=== PATIENT | male | born 1965 | race American Indian/Alaskan Native ===

== ENCOUNTER 2020-10-28 06:19 | Day surgery (SDC) | payer OTHER ==
--- NOTE | 2020-10-27 14:39 | Anesthesia Consultation ---
Anesthesia Consult and Med Hx Date of service: 10/27/20 - Airway Anesthetic Teeth Evaluation: Good ROM Head & Neck: Adequate Mental/Hyoid Distance: Adequate Mallampati Class: Class III Intubation Access Assessment: Possibly Difficult - Pulmonary Exam CTA: Yes - Cardiac Exam Cardiac Exam: RRR - Pre-Operative Health Status ASA Pre-Surgery Classification: ASA3 Proposed Anesthetic Plan: MAC - Pulmonary Hx Smoking: No Hx Respiratory Symptoms: No Hx Sleep Apnea: Yes (+ CPAP) - Cardiovascular System Hx Hypertension: Yes Hx Heart Attack/AMI: No Hx Percutaneous Transluminal Coronary Angioplasty (PTCA): No Hx Cardia Arrhythmia: Yes (hx WPW, afib s/p ablation; occasional palpitations. EKG 10/27/20 NSR ) Hx Pacemaker: No Hx Internal Defibrillator: No - Central Nervous System CVA: No Hx Back Pain: Yes Hx Psychiatric Problems: Yes (PTSD, anxiety, depression) - Endocrine Hx Renal Disease: No Hx Liver Disease: No Hx Non-Insulin Dependent Diabetes: Yes ("borderline" DM) Hx Thyroid Disease: No - Other Systems Hx Alcohol Use: Yes (remote hx) Hx Substance Use: Yes (remote hx) Hx Obesity: Yes (BMI 35) - Additional Comments Anesthesia Medical History Comments: No hx anesthetic complications. Has non- healed left rib fractures from a fall 3yrs ago. Last dose ASA >1 wk ago.
[~2020-10-28 06:19] MED LIST: ACETAMINOPHEN 500 MG TAB PO SCH; GABAPENTIN 300 MG CAP PO NR; LACTATED RINGERS 1,000 ML IV SCH; MIDAZOLAM 2 MG/2 ML INJ IV NR
[2020-10-28] MEDS ORDERED: BACTERIOSTATIC SODIUM CHLORIDE 0.9% 30 ML VIAL INFILTRATI ONE (06:47)
[2020-10-28] MEDS ORDERED: ceFAZolin/STERILE WATER 2 GM/20 ML SYRINGE IV NR (07:00)
[2020-10-28] MEDS ORDERED: propofoL 200 MG/20 ML VIAL IV ONE ×2 (07:28→08:23)
[2020-10-28] MEDS ORDERED: MIDAZOLAM 2 MG/2 ML INJ ONE (07:28)
[2020-10-28] MEDS ORDERED: HYDROmorphone 1 MG/1 ML INJ ONE (07:28)
[2020-10-28] MEDS ORDERED: LIDOCAINE (1%) 10 MG/1 ML VIAL 20 ML MDV ONE (07:28)
[2020-10-28] MEDS ORDERED: BUPIVACAINE/PF (0.25%) 2.5 MG/ML 30 ML VIAL INFILTRATI ONE ×2 (07:28→08:05)
[2020-10-28] MEDS ORDERED: LIDOCAINE MPF (2%) 20 MG/1 ML VIAL 5 ML ONE (07:36)
[2020-10-28] MEDS ORDERED: LIDOCAINE (1%) 10 MG/1 ML VIAL 20 ML MDV INFILTRATI ONE (08:05)
[2020-10-28] MEDS ORDERED: SODIUM CHLORIDE 0.9% IRR 1,500 ML BOTTLE IR ONE (08:05)
[2020-10-28] MEDS ORDERED: fentaNYL 100 MCG/2 ML INJ IV PRN (08:37)
[2020-10-28] MEDS ORDERED: ONDANSETRON 4 MG/2 ML INJ IV PRN (08:37)
--- NOTE | 2020-10-28 08:37 | Anesthesia Day of Surgery ---
Anesthesia Day of Surgery - Day of Surgery Patient Examined: Yes Patient H&P Reviewed: Yes Patient is NPO: Yes Beta Blockers: Yes
--- NOTE | 2020-10-28 09:17 | Short Stay Summary ---
Short Stay Documentation Date of service: 10/28/20 - History Principal diagnosis: soft tissue mass upper back/posterior neck - Allergies and Medications Current Medications: Allergies hydrocodone [From Vicodin] Allergy (Verified 10/20/20 15:53) Itching lisinopril Adverse Reaction (Verified 10/20/20 15:54) Swelling LIPS SWELLED oxycodone [From Percocet] Adverse Reaction (Verified 10/20/20 15:53) Itching Home Medications Medication Instructions Recorded Confirmed Last Taken Type AtorvaSTATin [Lipitor] 10 mg PO QHS 08/01/18 10/28/20 3 Days Ago History ~10/25/20 Terazosin HCl 2 mg PO DAILY 08/01/18 10/28/20 10/27/20 History traMADoL [Ultram] 50 mg PO Q4HR PRN 08/01/18 10/28/20 3 Days Ago History ~10/25/20 Aspirin 81 mg PO DAILY 10/20/20 10/22/20 1 Week Ago History ~10/21/20 HCTZ 25 mg PO DAILY 10/20/20 10/22/20 3 Days Ago History ~10/25/20 Naprosyn 500 mg PO BID 10/20/20 10/22/20 1 Week Ago History ~10/21/20 amLODIPine 10 mg PO DAILY 10/20/20 10/28/20 3 Days Ago History ~10/25/20 carvediloL 25 mg PO DAILY 10/20/20 10/28/20 10/28/20 05:30 History metFORMIN 500 mg PO DAILY 10/20/20 10/22/20 3 Days Ago History ~10/25/20 Cyclobenzaprine [Flexeril 10 MG 10 mg PO PRN PRN 10/22/20 10/22/20 3 Days Ago History TAB] ~10/25/20 Gabapentin 300 mg PO TID PRN 10/22/20 10/22/20 3 Days Ago History ~10/25/20 Hydroxyzine HCl [hydrOXYzine] 25 mg PO PRN 10/22/20 10/22/20 3 Days Ago History ~10/25/20 Omeprazole 20 mg PO DAILY 10/22/20 10/22/20 3 Days Ago History ~10/25/20 allopurinoL [Zyloprim] 300 mg PO QDAY 10/22/20 10/22/20 3 Days Ago History ~10/25/20 methocarbamoL [Methocarbamol] 500 mg PO DAILY 10/22/20 10/22/20 3 Days Ago History ~10/25/20 traMADoL [Ultram 50 MG tab] 50 mg PO TID PRN 10/22/20 10/22/20 3 Days Ago History ~10/25/20 traZODone 50 mg PO HS 10/22/20 10/22/20 3 Days Ago History ~10/25/20 Active Medications Acetaminophen (Acetaminophen 500 Mg Tab) 1,000 mg PO PREOP CHILO Stop: 10/28/20 23:59 Last Admin: 10/28/20 06:55 Dose: 1,000 mg Documented by: Cefazolin Sodium (Cefazolin/Sterile Water 2 Gm/20 Ml Syringe) 2 gm IV PREOP NR Stop: 10/28/20 20:00 Fentanyl (Fentanyl 100 Mcg/2 Ml Inj) 50 mcg IV Q5MIN PRN PRN Reason: Pain , Severe (7-10) Stop: 10/28/20 23:00 Lactated Ringer's (Lactated Ringers) 1,000 mls @ 100 mls/hr IV DIRECT CHILO Stop: 10/28/20 23:59 Last Admin: 10/28/20 07:00 Dose: 100 mls/hr Documented by: Midazolam HCl (Midazolam 2 Mg/2 Ml Inj) 2 mg IV PREOP NR Stop: 10/28/20 23:59 Last Admin: 10/28/20 06:10 Dose: 2 mg Documented by: Ondansetron HCl (Ondansetron 4 Mg/2 Ml Inj) 4 mg IV ONCE PRN PRN Reason: Nausea And Vomiting Stop: 10/28/20 23:00 - Brief post op/procedure progress note Date of procedure: 10/28/20 Pre-op diagnosis: soft tissue mass upper back/post neck Post-op diagnosis: same Procedure: excision STM upper back/post neck Anesthesia: MAC, local Findings: Fibrotic subcutaneous tissue just deep to the level of the dermis with normal appearing surrounding fatty tissue. No other obvious lesions in the area of concern. Wound and area of concern examined with bedside ultrasound and no other obvious soft tissue mass identified. Surgeon: ELLEN MURILLO Estimated blood loss: minimal Pathology: list (mass of upper back/post neck - excised in multiple fragments) Specimen disposition: to lab Condition: stable - Hospital course Hospital course: Pt observed in PACU and discharged to home in stable condition when criteria met - Disposition Condition at discharge: Good Short Stay Discharge Plan Activity: no restrictions Diet: regular Wound: per your surgeon's advice (leave dressing in place for the next 3-5 days. May shower with dressing in place but avoid direct water to the area. Pat dry, do not scrub. If dressing falls off, do not need to re-cover) Additional Instructions: Use ice pack to the area of surgery for pain and bruising. Follow up with: [facility] [Primary Care Provider] - 7 Days ELLEN MURILLO DO [Staff Physician] - 14 Days Prescriptions: traMADoL [Ultram 50 MG tab] 50 mg PO Q4HR PRN #20 tablet PRN Reason: Pain
[2020-10-28 11:16] VITALS: BP 152/94
--- NOTE | 2020-10-28 12:12 | Post Anesthesia Evaluation ---
- Post Anesthesia Evaluation Patient Participated: Yes Airway Patent: Yes Stable Respiratory Function: Yes Nausea/Vomiting: No Temp > 96.8F: Yes Pain Manageable: Yes Adequeate Hydration: Yes Anesthesia Complications: No
--- NOTE | 2020-10-28 17:43 | Electrocardiograph Report ---
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
--- NOTE | 2020-10-31 07:10 | Operative Report ---
Operative Report Operative Report: Date of procedure: 10/28/20 Pre-op diagnosis: soft tissue mass upper back/post neck Post-op diagnosis: same Procedure: excision STM upper back/post neck Anesthesia: MAC, local Findings: Fibrotic subcutaneous tissue just deep to the level of the dermis with normal appearing surrounding fatty tissue. No other obvious lesions in the area of concern. Wound and area of concern examined with bedside ultrasound and no other obvious soft tissue mass identified. Surgeon: ELLEN MURILLO Estimated blood loss: minimal Pathology: list (mass of upper back/post neck - excised in multiple fragments) Specimen disposition: to lab Condition: stable Hospital course: Pt observed in PACU and discharged to home in stable condition when criteria met HPI and indication: Patient is a 54-year-old male who presented to the surgery clinic with complaints of a mass of his posterior neck upper back area. Patient states it has been growing in size and was becoming uncomfortable. He wanted it to be excised. All risk, benefits, alternatives to surgery were discussed with the patient and questions answered. Consent obtained for excision of soft tissue mass of posterior neck Procedure in detail: Patient was identified in the preoperative area and the site marked. He was taken back to the operating room and placed on the operating room table in supine position. After anesthesia was induced the patient was turned to prone position. The posterior neck and upper back were prepped and draped in the usual sterile fashion and a timeout performed. Local anesthetic was infiltrated into the skin at the intended incision site. An incision was made over the area of the palpable mass and dissection was carried down through the subcutaneous tissue using electrocautery. In the location of the mass was fibrotic subcutaneous and dermal tissue. Surrounding this there was normal subcutaneous tissue. Using a mind ray intraoperative ultrasound, no other mass was identified to account for the palpable lesion. The fibrotic tissue was excised using electrocautery and multiple fragments. This was passed off the table as a specimen. Once again using the minder a bedside ultrasound, the wound was examined and no other lesions identified. The wound was irrigated and hemostasis carefully ensured. Once hemostasis was ensured, the wound was closed in layered fashion. Deep layer was closed with interrupted 3-0 Vicryl stitches. The skin was approximated using 4-0 Monocryl subcuticular running stitch and skin glue. Once the glue was dry a 4 x 4 gauze was applied to the wound and secured with Elastoplast tape for compression. At the end of the case all sponge, instrument, sharp counts were correct x2. Patient was awoken from anesthesia, transferred to the stretcher and taken to PACU in stable condition. The patient's was updated of intraoperative findings and the patient's condition.
== END 2020-10-28 10:20 | disposition home or self-care (01) ==
LOC: OR 06:19
PROVIDERS: ATTEND Surgery
DX: D17.0 Benign lipomatous neoplasm of skin and subcutaneous tissue of head, face and neck (principal); E11.9 Type 2 diabetes mellitus without complications; E66.9 Obesity, unspecified; G47.30 Sleep apnea, unspecified; F41.9 Anxiety disorder, unspecified; F32.9 Major depressive disorder, single episode, unspecified; M19.90 Unspecified osteoarthritis, unspecified site; K21.9 Gastro-esophageal reflux disease without esophagitis; Z88.8 Allergy status to other drugs, medicaments and biological substances; Z79.899 Other long term (current) drug therapy; Z98.890 Other specified postprocedural states
CPT/HCPCS: 21552; 82962; 88304; 93005; J0690; J1170; J2250; J2405; J2704; J7120; 88307